=== PATIENT | male | born 1965 | race Caucasian/White ===

== ENCOUNTER 2021-06-21 22:58 | Emergency (ER) | payer OTHER ==
--- NOTE | 2021-06-21 23:29 | EDM.PDOC ---
ED HPI GENERAL MEDICAL PROBLEM - General Chief Complaint: General Stated Complaint: L shoulder injury Time Seen by Provider: 06/21/21 23:29 Source of Information: Reports: Patient - History of Present Illness INITIAL COMMENTS - FREE TEXT/NARRATIVE: Larry, 55-year-old male, presents emergency department tonight after acquiring an injury to the left shoulder at work. 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 He was cranking on the stella crank of a parked trailer but had been set to high, and in which the trailer was stuck between gears. He was working the crank in an attempt to get into the same level as his truck when he encountered difficulty with crank started free wheeling and strained his left shoulder. He felt and heard a pop and has had limited mobility since then. He is unable to bring his arm above the level at the height of the shoulder. When changing position it induces a numbness feeling to his hand. No other complaints other than this shoulder injury. Onset: Today, Sudden Left Shoulder Pain Score (Numeric/FACES): 8 - Related Data Allergies Allergy/AdvReac Type Severity Reaction Status Date / Time No Known Allergies Allergy Verified 06/21/21 23:24 Home Meds: Home Meds Aspirin [Aspirin EC] 81 mg PO DAILY 06/21/21 [History] Metoprolol Succinate 100 mg PO DAILY 06/21/21 [History] Multivitamin 1 each PO DAILY 06/21/21 [History] Past Medical History HEENT History: Reports: None Cardiovascular History: Reports: Hypertension Respiratory History: Reports: None, Sleep Apnea Gastrointestinal History: Reports: Helicobacter Pylori Genitourinary History: Reports: None Musculoskeletal History: Reports: None Neurological History: Reports: None Psychiatric History: Reports: None Endocrine/Metabolic History: Reports: None Hematologic History: Reports: None Dermatologic History: Reports: None - Past Surgical History Head Surgeries/Procedures: Reports: None Social & Family History - Family History Family Medical History: No Pertinent Family History - Tobacco Use Tobacco Use Status *Q: Never Tobacco User Tobacco Use Within Last Twelve Months: No - Caffeine Use Caffeine Use: Reports: Coffee - Alcohol Use Alcohol Use History: No Alcohol Use in Last Twelve Months: No - Recreational Drug Use Recreational Drug Use: No Drug Use in Last 12 Months: No ED ROS GENERAL - Review of Systems Review Of Systems: See Below Constitutional: Reports: No Symptoms HEENT: Reports: No Symptoms Respiratory: Reports: No Symptoms Cardiovascular: Reports: No Symptoms Endocrine: Reports: No Symptoms GI/Abdominal: Reports: No Symptoms : Reports: No Symptoms Musculoskeletal: Reports: Shoulder Pain Skin: Reports: No Symptoms Neurological: Reports: Tingling Psychiatric: Reports: No Symptoms Hematologic/Lymphatic: Reports: No Symptoms Immunologic: Reports: No Symptoms ED EXAM, GENERAL - Physical Exam Exam: See Below Free Text/Narrative:: Alert, oriented, in mild painful distress. [id number] individual with no history of any shoulder injury previously. HEENT is negative discharge or deformity PERRLA no icterus no injection. Neck is soft supple with no lymphadenopathy no JVD. No nuchal rigidity is noted. Right shoulder and upper extremity is benign. Left shoulder has tenderness to the outer aspect of the clavicular region with point tenderness at the superior aspect. Radial pulses present and remains intact with any positioning of the forearm. 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 X-ray obtained shows this separation/opening of the glenohumeral joint with the humerus being somewhat lower in the joint making this suspicious for a rotator cuff injury. This in association with inability to bring his arm up in abduction to 90 degrees I would be highly suspicious and recommend an MRI. Course - Vital Signs Last Recorded V/S: Last Vital Signs Temp 96.4 F L 06/21/21 23:15 Pulse 90 06/21/21 23:15 Resp 20 06/21/21 23:15 BP 123/83 06/21/21 23:15 Pulse Ox 93 L 06/21/21 23:15 - Orders/Labs/Meds Orders: Active Orders 24 hr Category Date Time Status Shoulder Comp Lt [CR] Stat Exams 06/21/21 23:18 Ordered Departure - Departure Time of Disposition: 00:17 Disposition: Home, Self-Care 01 Condition: Fair Clinical Impression: Injury of left shoulder, Disorder of glenohumeral joint - Discharge Information *PRESCRIPTION DRUG MONITORING PROGRAM REVIEWED*: Not Applicable *COPY OF PRESCRIPTION DRUG MONITORING REPORT IN PATIENT [facility]: Not Applicable Referrals: Lourdes Pemberton MD [Primary Care Provider] - Forms: ED Department Discharge Additional Instructions: There is no apparent fracture to your shoulder nor dislocation. The separation in the glenohumeral joint as well as your limited mobility makes it highly suspicious for rotator cuff injury. You'll need to arrange for an MRI of the left shoulder based on your location and your companies WSI requirements for the Workmen's Compensation injury. Some states require preauthorization to obtain an number to have this completed. You may take Tylenol or ibuprofen as needed for your discomfort. You may ice and use heat whichever makes you feel better as far as discomfort. You're only limited to the activity that causes increased pain. Paperwork and further orders can be maintained based on your company's home medical office or through our facility here depending on the location as not all facilities except outside orders. Seek services at the nearest facility if you to experience inability for motion or loss of sensation to your extremity. Sepsis Event Note (ED) - Focused Exam Vital Signs: Vital Signs Temp Pulse Resp BP Pulse Ox 06/21/21 23:15 96.4 F L 90 20 123/83 93 L - Problem List & Annotations (1) Injury of left shoulder SNOMED Code(s): 31669119457494775 Code(s): S49.92XA - UNSP INJURY OF LEFT SHOULDER AND UPPER ARM, INIT ENCNTR Status: Acute Priority: High Qualifiers: Encounter type: initial encounter Qualified Code(s): S49.92XA - Unspecified injury of left shoulder and upper arm, initial encounter (2) Disorder of glenohumeral joint SNOMED Code(s): 111143005 Code(s): M25.9 - JOINT DISORDER, UNSPECIFIED Status: Acute Priority: High (3) Work related injury SNOMED Code(s): 46207360 Code(s): Y99.0 - CIVILIAN ACTIVITY DONE FOR INCOME OR PAY Status: Acute Priority: High (4) Encounter related to worker's compensation claim SNOMED Code(s): 555392867 Code(s): Z02.6 - ENCOUNTER FOR EXAMINATION FOR INSURANCE PURPOSES Status: Acute Priority: High - Problem List Review Problem List Initiated/Reviewed/Updated: Yes - My Orders Last 24 Hours: My Active Orders 06/21/21 23:18 Shoulder Comp Lt [CR] Stat - Assessment/Plan Last 24 Hours: My Active Orders 06/21/21 23:18 Shoulder Comp Lt [CR] Stat Plan: There is no apparent fracture to your shoulder nor dislocation. The separation in the glenohumeral joint as well as your limited mobility makes it highly suspicious for rotator cuff injury. You'll need to arrange for an MRI of the left shoulder based on your location and your companies WSI requirements for the Workmen's Compensation injury. Some states require preauthorization to obtain an number to have this completed. You may take Tylenol or ibuprofen as needed for your discomfort. You may ice and use heat whichever makes you feel better as far as discomfort. You're only limited to the activity that causes increased pain. Paperwork and further orders can be maintained based on your company's home medical office or through our facility here depending on the location as not all facilities except outside orders. Seek services at the nearest facility if you to experience inability for motion or loss of sensation to your extremity.
--- NOTE | 2021-06-22 10:14 | CR ---
[id number] RAD/RAD Shoulder Left 2V Min EXAM: 4 VIEWS LEFT SHOULDER. INDICATION: SHOULDER INJURY COMPARISON: None. DISCUSSION: No fracture, dislocation or other acute osseous abnormality. IMPRESSION: 1. No acute osseous abnormalities. Ottoniel Lozada DO 06/22/21 1013 Thank you for allowing us to participate in the care of your patient.
== END 2021-06-22 00:17 | disposition home or self-care (01) ==
LOC: KA.ED 22:58
DX: S49.92XA Unspecified injury of left shoulder and upper arm, initial encounter (principal); W22.09XA Striking against other stationary object, initial encounter; Y99.0 Civilian activity done for income or pay
CPT/HCPCS: 73030-LT; 99283; 99283-25